=== PATIENT | female | born 1995 | race African-American/Black ===

== ENCOUNTER 2016-08-30 17:06 | Emergency (ER) | payer SELFPAY ==
--- NOTE | 2016-09-04 23:43 | ER ---
ADMIT: 08/30/2016 RM/LOC: [facility] MR#: [id number] [place], [place] [id number] EBENEZER CATALAN [address] [place] [id number] Emergency Room Report SEX: F AGE: 21 : 1995 DATE: 08/30/2016 TIME: 1706 hours. HISTORY OF PRESENT ILLNESS: Please refer to my T-sheet for complete H and P. HISTORY OF PRESENT ILLNESS: Briefly, the patient is a 21-year-old, comes in that she has had a history of recurrent folliculitis, maybe a staph infection in her belt line and in her groin. They come and go on her armpits at times. She has been told that they could be suppurativa hidradenitis. She is not currently on any meds. She does take a bath frequently and uses Dial soap. She is in because there was a large umbilicus, today it did drain. PHYSICAL EXAMINATION: VITAL SIGNS: Stable. SKIN: Shows multiple areas of healing of what appears to be folliculitis, one draining in her belt line a little bit, one in her umbilicus. EMERGENCY DEPARTMENT COURSE: I had a long discussion, gave her dose of Bactrim. She is ready for discharge. ASSESSMENT: Folliculitis, recurrent, high likely staph. PLAN: Bactrim DS b.i.d. x14 days. Continue Dial. Return if worse. Follow up with a fiscal analyst. Buddy Bajwa MD/ sanjuanita JOB #: [id number] CC: Buddy Bajwa MD, Attending Physician Payton Ferrer MD, Family Physician
== END 2016-08-30 18:06 | disposition home or self-care (01) ==
LOC: ER 17:06
DX: L73.9 Follicular disorder, unspecified (principal); F17.210 Nicotine dependence, cigarettes, uncomplicated; Z90.89 Acquired absence of other organs